=== PATIENT | female | born 1965 | race Caucasian/White ===

== ENCOUNTER 2021-01-17 09:08 | Day surgery (SDC) | payer BC ==
[2021-01-13 13:28] VITALS: BMI 29.5
[~2021-01-17 09:08] MED LIST: LACTATED RINGERS 1,000 ML IV SCH; LIDOCAINE 1% (10MG/ML) FOR IV START INTRADERMA PRN; MIDAZOLAM 2 MG/2 ML VIAL IV PRN
[2021-01-17 09:33] VITALS: TEMP 97.9
[2021-01-17] MEDS ORDERED: PROPOFOL 10 MG/ML 20 ML VIAL IV ONE (10:09)
--- NOTE | 2021-01-17 10:34 | P.PCN ---
Date of Procedure: 01/17/21 Description of Procedure: BRIEF HISTORY: Patient is a 55-year-old female presenting for outpatient EGD for symptoms of dysphagia. Patient been seen in the clinic reporting intermittent dysphagia predominantly to solids. She was not interested in medical management or PPI therapy at that time and GERD lifestyle instructions were provided. Patient also reports postnasal drip. PROCEDURE PERFORMED: Esophagogastroduodenoscopy with biopsy. PREOPERATIVE DIAGNOSIS: Dysphagia, esophageal dysphagia. ESTIMATED BLOOD LOSS: Minimal. IV sedation per anesthesia. PROCEDURE: After informed consent was obtained, the patient was brought into the endoscopy unit. IV sedation was administered by Anesthesia under continuous monitoring. Initially the Olympus GIF-190 video endoscope was inserted into the mouth. Esophagus intubated without any difficulty. It was gradually advanced into the stomach and duodenum and carefully examined. The bulb and the second part of the duodenum appeared normal, with biopsies taken. The scope at this time was withdrawn to the stomach, adequately insufflated with air, and upon careful examination, mucosa of the antrum, body, cardia and the fundus appeared normal, except for moderate erythema with superficial erosions in the antrum and body suggestive of moderate gastritis with biopsies taken. There were also a few diminutive polyps likely fundic gland polyps which were biopsied. The scope was then withdrawn into the esophagus. The GE junction was located at 36 cm from the incisors and biopsied. A 2 cm hiatal hernia was noted. The esophagus appeared normal, and biopsied to rule out eosinophilic esophagitis. There were no erosions or ulcerations seen and the patient tolerated the procedure well. IMPRESSION: 1. Moderate gastritis. 2. Benign-appearing gastric polyps, likely fundic gland polyps. 3. Small hiatal hernia. 4. Biopsies of the duodenum, antrum and body, gastric polyps, GE junction and midesophagus. RECOMMENDATIONS: The findings of this examination were discussed with the patient in her family. Okay to resume diet. Okay to resume medication. Await pathology from biopsies. GERD lifestyle modifications discussed, patient may benefit from PPI therapy. Follow-up in the clinic in 1-2 weeks for results of biopsies.
[2021-01-17 11:02] VITALS: BP 138/76; PULSE 64; RESP 16
== END 2021-01-17 11:13 | disposition home or self-care (01) ==
LOC: ORWHC2ENDO 09:08
PROVIDERS: ATTEND Internal Medicine
DX: K29.50 Unspecified chronic gastritis without bleeding (principal); K31.7 Polyp of stomach and duodenum; K21.00 Gastro-esophageal reflux disease with esophagitis, without bleeding; K22.10 Ulcer of esophagus without bleeding; K31.9 Disease of stomach and duodenum, unspecified; K44.9 Diaphragmatic hernia without obstruction or gangrene; R09.82 Postnasal drip; Z79.899 Other long term (current) drug therapy; Z98.890 Other specified postprocedural states; Z80.0 Family history of malignant neoplasm of digestive organs
CPT/HCPCS: 88305; 43239; J2704